=== PATIENT | male | born 1935 | race Caucasian/White ===

== ENCOUNTER 2020-09-01 16:13 | Inpatient (IN) ==
[2020-09-01] MEDS: Temazepam 15 MG CAPSULE PO SCH (23:04)
[2020-09-01] MEDS: Gabapentin 300 MG CAPSULE PO SCH (23:04)
[2020-09-02 05:25] LABS: Basophils # 0.1 K/mcL (0.0-0.2); Basophils % 0.7 %; Eosinophils # 0.4 K/mcL (0.0-0.6); Eosinophils % 3.7 %; Hematocrit 39.2 % (37.5-50.1); Hemoglobin 12.8 g/dL (12.9-16.9); Immature Granulocytes % 0.4 % (0-4); Lymphocytes # 1.8 K/mcL (0.6-4.6); Lymphocytes % 18.7 %; Mean Corpuscular HGB Conc 32.7 g/dL (31.6-35.5); Mean Corpuscular Volume 88.9 fL (83.0-100.0); Mean Platelet Volume 8.2 fL (9.4-12.4); Monocytes # 1.1 K/mcL (0.0-1.3); Monocytes % 11.6 %; Neutrophils # 6.2 K/mcL (1.6-8.9); Platelet Count 293 K/mcL (140-400); Red Blood Count 4.41 M/mcL (4.19-5.50); Red Cell Distribution Width 14.2 % (11.5-14.5); Segmented Neutrophils % 64.9 %; White Blood Count 9.6 K/mcL (4.3-11.1)
[2020-09-02 05:27] LABS: INR 2.1; Prothrombin Time 23.3 Seconds (9.4-12.1)
[2020-09-02 05:40] LABS: Alanine Aminotransferase 17 Units/L (7-52); Albumin 3.8 g/dL (3.5-5.7); Albumin/Globulin Ratio 1.1 (1.1-2.2); Alkaline Phosphatase 63 Units/L (34-104); Aspartate Amino Transferase 29 Units/L (13-39); BUN/Creatinine Ratio 19 (6-26); Bilirubin,Total 0.6 mg/dL (0.3-1.0); Blood Urea Nitrogen 18 mg/dL (8-23); Carbon Dioxide 30 mEq/L (23-29); Chloride 101 mEq/L (98-107); Globulin 3.4 g/dL (2.4-3.5); Glucose 93 mg/dL (70-105); Magnesium 2.1 mg/dL (1.6-2.6); Osmolality,Calculated 286 (280-300); Potassium 4.3 mEq/L (3.5-5.1); Sodium 137 mEq/L (136-145); Total Protein 7.2 g/dL (6.4-8.9); eGFR For African Americans > 60 (> 60); eGFR For Non-African Americans > 60 (> 60)
[2020-09-02] MEDS: Cholecalciferol (D-3) 1,000 UNIT (25MCG) TABLET PO SCH (07:50)
[2020-09-02] MEDS: amLODIPine 5 MG TABLET PO SCH (07:50)
[2020-09-02] MEDS: Anastrozole 1 MG TABLET PO SCH (07:50)
[2020-09-02] MEDS: Gabapentin 300 MG CAPSULE PO SCH ×3 (07:50→19:50)
[2020-09-02] MEDS: Multivit/Ca/Min/Fe/FA 1 TAB TABLET PO SCH (07:50)
[2020-09-02] MEDS: FISH OIL PO SCH (07:53)
[2020-09-02] MEDS: EPA PO SCH (07:53)
[2020-09-02] MEDS: DHA PO SCH (07:53)
[2020-09-02] MEDS: OMEGA PO SCH (07:53)
[2020-09-02] MEDS ORDERED: *HR* Warfarin 5 MG TABLET PO SCH (09:00)
[2020-09-02] MEDS ORDERED: *HR* Warfarin 5 MG TABLET PO ONE (18:00)
[2020-09-02] MEDS ORDERED: Warfarin perPT PO PRN (18:00)
[2020-09-02] MEDS: Temazepam 15 MG CAPSULE PO SCH (19:50)
[2020-09-03 06:17] LABS: INR 1.8
[2020-09-03] MEDS: Anastrozole 1 MG TABLET PO SCH (09:03)
[2020-09-03] MEDS: OMEGA PO SCH (09:03)
[2020-09-03] MEDS: EPA PO SCH (09:03)
[2020-09-03] MEDS: Multivit/Ca/Min/Fe/FA 1 TAB TABLET PO SCH (09:03)
[2020-09-03] MEDS: Cholecalciferol (D-3) 1,000 UNIT (25MCG) TABLET PO SCH (09:03)
[2020-09-03] MEDS: DHA PO SCH (09:03)
[2020-09-03] MEDS: Gabapentin 300 MG CAPSULE PO SCH ×3 (09:03→20:33)
[2020-09-03] MEDS: FISH OIL PO SCH (09:03)
[2020-09-03] MEDS: amLODIPine 5 MG TABLET PO SCH (09:03)
[2020-09-03] MEDS ORDERED: Lactulose Oral Soln 20 GM/30 ML UDC PO PRN (09:50)
[2020-09-03] MEDS ORDERED: Bisacodyl 10 MG RECTAL SUPPOSITORY RC PRN (09:50)
[2020-09-03] MEDS: polyethylene glycoL 3350 17 GM POWD.PACK PO SCH (10:19)
[2020-09-03] MEDS: Sennosides/Docusate Sodium TABLET PO SCH ×2 (10:19→20:33)
[2020-09-03] MEDS ORDERED: *HR* Warfarin 3 MG TABLET PO ONE (18:00)
[2020-09-03] MEDS: Temazepam 15 MG CAPSULE PO SCH (20:32)
[2020-09-04 05:26] LABS: INR 1.8; Prothrombin Time 19.8 Seconds (9.4-12.1)
[2020-09-04] MEDS: Sennosides/Docusate Sodium TABLET PO SCH ×2 (09:07→21:37)
[2020-09-04] MEDS: Anastrozole 1 MG TABLET PO SCH (09:07)
[2020-09-04] MEDS: Gabapentin 300 MG CAPSULE PO SCH ×3 (09:07→21:37)
[2020-09-04] MEDS: Multivit/Ca/Min/Fe/FA 1 TAB TABLET PO SCH (09:07)
[2020-09-04] MEDS: amLODIPine 5 MG TABLET PO SCH (09:07)
[2020-09-04] MEDS: Cholecalciferol (D-3) 1,000 UNIT (25MCG) TABLET PO SCH (09:07)
[2020-09-04] MEDS: DHA PO SCH (09:08)
[2020-09-04] MEDS: EPA PO SCH (09:08)
[2020-09-04] MEDS: OMEGA PO SCH (09:08)
[2020-09-04] MEDS: FISH OIL PO SCH (09:08)
[2020-09-04] MEDS: polyethylene glycoL 3350 17 GM POWD.PACK PO SCH (17:33)
[2020-09-04] MEDS ORDERED: *HR* Warfarin 3 MG TABLET PO ONE (18:00)
[2020-09-04] MEDS: Temazepam 15 MG CAPSULE PO SCH (21:37)
[2020-09-05 06:37] LABS: INR 1.7; Prothrombin Time 18.9 Seconds (9.4-12.1)
[2020-09-05] MEDS: Gabapentin 300 MG CAPSULE PO SCH ×3 (08:44→21:05)
[2020-09-05] MEDS: amLODIPine 5 MG TABLET PO SCH (08:44)
[2020-09-05] MEDS: Multivit/Ca/Min/Fe/FA 1 TAB TABLET PO SCH (08:45)
[2020-09-05] MEDS: Sennosides/Docusate Sodium TABLET PO SCH ×2 (08:45→21:06)
[2020-09-05] MEDS: Cholecalciferol (D-3) 1,000 UNIT (25MCG) TABLET PO SCH (08:45)
[2020-09-05] MEDS: Anastrozole 1 MG TABLET PO SCH (08:45)
[2020-09-05] MEDS: DHA PO SCH (08:50)
[2020-09-05] MEDS: EPA PO SCH (08:50)
[2020-09-05] MEDS: OMEGA PO SCH (08:50)
[2020-09-05] MEDS: polyethylene glycoL 3350 17 GM POWD.PACK PO SCH (08:50)
[2020-09-05] MEDS: FISH OIL PO SCH (08:50)
[2020-09-05] MEDS ORDERED: *HR* Warfarin 3 MG TABLET PO ONE (18:00)
[2020-09-05] MEDS: Temazepam 15 MG CAPSULE PO SCH (21:05)
[2020-09-05 22:14] LABS: Bilirubin,Urine Negative (Negative); Blood,Urine Moderate (Negative); Clarity,Urine Clear (Clear); Color,Urine Yellow (Yellow); Glucose,Urine (UA) Normal (Normal); Ketones,Urine Negative (Negative); Leukocyte Esterase,Urine Small (Negative); Nitrite,Urine Negative (Negative); Protein,Urine Negative (Neg-Trace); Specific Gravity,Urine 1.025 (1.010-1.025); Urobilinogen,Urine Normal (Normal)
[2020-09-05 22:23] LABS: Bacteria,Urine Many per hpf (None-Few); Squamous Epithelial Cell,Urine Few per hpf (None-Few); WBC,Urine 15-30 per hpf (0-3)
[2020-09-06 06:03] LABS: Hematocrit 35.5 % (37.5-50.1); Hemoglobin 11.9 g/dL (12.9-16.9); Mean Corpuscular HGB Conc 33.5 g/dL (31.6-35.5); Mean Corpuscular Hemoglobin 29.5 pg (28.0-33.3); Mean Corpuscular Volume 87.9 fL (83.0-100.0); Mean Platelet Volume 8.5 fL (9.4-12.4); Platelet Count 323 K/mcL (140-400); Red Blood Count 4.04 M/mcL (4.19-5.50); Red Cell Distribution Width 13.9 % (11.5-14.5)
[2020-09-06 06:27] LABS: INR 1.9; Prothrombin Time 21.2 Seconds (9.4-12.1)
[2020-09-06 06:44] LABS: Alanine Aminotransferase 20 Units/L (7-52); Albumin 3.7 g/dL (3.5-5.7); Albumin/Globulin Ratio 1.1 (1.1-2.2); Alkaline Phosphatase 73 Units/L (34-104); Aspartate Amino Transferase 19 Units/L (13-39); BUN/Creatinine Ratio 18 (6-26); Bilirubin,Total 0.6 mg/dL (0.3-1.0); Blood Urea Nitrogen 16 mg/dL (8-23); Calcium 8.6 mg/dL (8.6-10.3); Carbon Dioxide 28 mEq/L (23-29); Chloride 101 mEq/L (98-107); Globulin 3.3 g/dL (2.4-3.5); Glucose 92 mg/dL (70-105); Magnesium 2.2 mg/dL (1.6-2.6); Osmolality,Calculated 281 (280-300); Potassium 3.9 mEq/L (3.5-5.1); Sodium 135 mEq/L (136-145); eGFR For African Americans > 60 (> 60); eGFR For Non-African Americans > 60 (> 60)
[2020-09-06] MEDS: polyethylene glycoL 3350 17 GM POWD.PACK PO SCH (08:14)
[2020-09-06] MEDS: Gabapentin 300 MG CAPSULE PO SCH ×3 (08:14→20:39)
[2020-09-06] MEDS: Sennosides/Docusate Sodium TABLET PO SCH ×2 (08:14→20:40)
[2020-09-06] MEDS: Multivit/Ca/Min/Fe/FA 1 TAB TABLET PO SCH (08:14)
[2020-09-06] MEDS: amLODIPine 5 MG TABLET PO SCH (08:14)
[2020-09-06] MEDS: EPA PO SCH (08:15)
[2020-09-06] MEDS: DHA PO SCH (08:15)
[2020-09-06] MEDS: FISH OIL PO SCH (08:15)
[2020-09-06] MEDS: OMEGA PO SCH (08:15)
[2020-09-06] MEDS: Cholecalciferol (D-3) 1,000 UNIT (25MCG) TABLET PO SCH (08:15)
[2020-09-06] MEDS ORDERED: *HR* Warfarin 5 MG TABLET PO ONE (18:00)
[2020-09-06] MEDS: Temazepam 15 MG CAPSULE PO SCH (20:39)
[2020-09-07 05:42] LABS: Prothrombin Time 21.8 Seconds (9.4-12.1)
[2020-09-07] MEDS: Sennosides/Docusate Sodium TABLET PO SCH ×2 (08:53→20:01)
[2020-09-07] MEDS: amLODIPine 5 MG TABLET PO SCH (08:53)
[2020-09-07] MEDS: Gabapentin 300 MG CAPSULE PO SCH ×3 (08:53→20:01)
[2020-09-07] MEDS: Multivit/Ca/Min/Fe/FA 1 TAB TABLET PO SCH (08:53)
[2020-09-07] MEDS: DHA PO SCH (08:54)
[2020-09-07] MEDS: Cholecalciferol (D-3) 1,000 UNIT (25MCG) TABLET PO SCH (08:54)
[2020-09-07] MEDS: FISH OIL PO SCH (08:54)
[2020-09-07] MEDS: OMEGA PO SCH (08:54)
[2020-09-07] MEDS: polyethylene glycoL 3350 17 GM POWD.PACK PO SCH (08:54)
[2020-09-07] MEDS: EPA PO SCH (08:54)
[2020-09-07] MEDS ORDERED: *HR* Warfarin 5 MG TABLET PO ONE (18:00)
[2020-09-07] MEDS: Temazepam 15 MG CAPSULE PO SCH (20:01)
[2020-09-08 05:32] LABS: INR 2.1; Prothrombin Time 22.9 Seconds (9.4-12.1)
[2020-09-08] MEDS: polyethylene glycoL 3350 17 GM POWD.PACK PO SCH (08:19)
[2020-09-08] MEDS: Multivit/Ca/Min/Fe/FA 1 TAB TABLET PO SCH (08:20)
[2020-09-08] MEDS: Gabapentin 300 MG CAPSULE PO SCH ×3 (08:20→21:03)
[2020-09-08] MEDS: Cholecalciferol (D-3) 1,000 UNIT (25MCG) TABLET PO SCH (08:20)
[2020-09-08] MEDS: OMEGA PO SCH (08:21)
[2020-09-08] MEDS: Sennosides/Docusate Sodium TABLET PO SCH ×2 (08:21→21:03)
[2020-09-08] MEDS: FISH OIL PO SCH (08:21)
[2020-09-08] MEDS: EPA PO SCH (08:21)
[2020-09-08] MEDS: DHA PO SCH (08:21)
[2020-09-08] MEDS: amLODIPine 5 MG TABLET PO SCH (08:21)
[2020-09-08] MEDS ORDERED: *HR* Warfarin 5 MG TABLET PO ONE (18:00)
[2020-09-08] MEDS: Temazepam 15 MG CAPSULE PO SCH (21:03)
[2020-09-09 05:47] LABS: Prothrombin Time 22.5 Seconds (9.4-12.1)
[2020-09-09] MEDS: Gabapentin 300 MG CAPSULE PO SCH (08:35)
[2020-09-09] MEDS: DHA PO SCH (08:35)
[2020-09-09] MEDS: OMEGA PO SCH (08:35)
[2020-09-09] MEDS: EPA PO SCH (08:35)
[2020-09-09] MEDS: Multivit/Ca/Min/Fe/FA 1 TAB TABLET PO SCH (08:35)
[2020-09-09] MEDS: FISH OIL PO SCH (08:35)
[2020-09-09] MEDS: Cholecalciferol (D-3) 1,000 UNIT (25MCG) TABLET PO SCH (08:35)
[2020-09-09] MEDS: amLODIPine 5 MG TABLET PO SCH (08:35)
[2020-09-09] MEDS: polyethylene glycoL 3350 17 GM POWD.PACK PO SCH (08:35)
[2020-09-09] MEDS: Sennosides/Docusate Sodium TABLET PO SCH (08:35)
[2020-09-09 09:04] VITALS: BP 118/70
[2020-09-09] MEDS ORDERED: *HR* Warfarin 3 MG TABLET PO ONE (18:00)
== END 2020-09-09 11:45 | disposition home health service (06) | DRG 945 ==
LOC: INPGRE 21:28
PROVIDERS: ADMIT Family Medicine; ATTEND Family Medicine